=== PATIENT | female | born 1970 | race Caucasian/White ===

== ENCOUNTER 2017-08-22 11:15 | Inpatient (IN) | payer OTHER ==
[2017-08-22] MEDS ORDERED: ONDANSETRON 4 MG/2 ML VIAL IVP STA (11:52)
[2017-08-22] MEDS ORDERED: SODIUM CHLORIDE 0.9% 1,000 ML IV STA (11:52)
--- NOTE | 2017-08-22 11:55 | ED ---
General Adult HPI - General Source: patient, RN notes reviewed Mode of arrival: ambulatory Limitations: no limitations <Sonny Crocker - Last Filed: 08/22/17 13:14> <Danielle Roque - Last Filed: 08/22/17 22:36> - General Chief complaint: Abdominal Pain Stated complaint: Stomach pain Time Seen by Provider: 08/22/17 11:43 - History of Present Illness Initial comments: Patient 46-year-old female presenting to the emergency room today with a chief complaint of abdominal pain that started yesterday morning. She states she's currently at [place] for alcohol withdrawal. She states that about pain started yesterday morning. States his last drink was yesterday morning. Patient does admit to a increased gassy type pain throughout the abdomen. Patient states very sharp at times. She does admit that she is passing gas. States that she has had a bowel movement was recently yesterday. Patient states that her abdomen feels more full. She denies any other complaints or symptoms. Patient denies any recent fever, chills, shortness of breath, chest pain, back pain, vomiting, constipation or diarrhea, headaches or visual changes , or any other complaints. (Sonny Crocker) - Related Data Allergies Allergy/AdvReac Type Severity Reaction Status Date / Time No Known Allergies Allergy Verified 08/22/17 13:36 Review of Systems ROS Other: All systems not noted in ROS Statement are negative. <Sonny Crocker - Last Filed: 08/22/17 13:14> ROS Other: All systems not noted in ROS Statement are negative. <Danielle Roque P - Last Filed: 08/22/17 22:36> ROS Statement: Those systems with pertinent positive or pertinent negative responses have been documented in the HPI. Past Medical History Past Medical History: Diabetes Mellitus History of Any Multi-Drug Resistant Organisms: None Reported Past Surgical History: Section, Cholecystectomy, Tonsillectomy, Tubal Ligation Additional Past Surgical History / Comment(s): gastric bypass, vaginal wall lesion removal Past Psychological History: Anxiety, Depression Smoking Status: Former smoker Past Alcohol Use History: Abuse Past Drug Use History: None Reported <Sonny Crocker - Last Filed: 08/22/17 13:14> General Exam Limitations: no limitations <Sonny Crocker - Last Filed: 08/22/17 13:14> <Danielle Roque - Last Filed: 08/22/17 22:36> - General Exam Comments Initial Comments: General: The patient is awake and alert, in no distress, and does not appear acutely ill. Eye: Pupils are equal, round and reactive to light, extra-ocular movements are intact. No nystagmus. There is normal conjunctiva bilaterally. No signs of icterus. Ears, nose, mouth and throat: There are moist mucous membranes and no oral lesions. Neck: The neck is supple, there is no tenderness or JVD. Cardiovascular: There is a regular rate and rhythm. No murmur, rub or gallop is appreciated. Respiratory: Lungs are clear to auscultation, respirations are non-labored, breath sounds are equal. No wheezes, stridor, rales, or rhonchi. Gastrointestinal: Abdomen soft on palpation. Mild tenderness throughout the abdomen. No rebound, guarding, CVA tenderness. Musculoskeletal: Normal ROM, no tenderness. Strength 5/5. Sensation intact. Pulses equal bilaterally 2+. Neurological: A&O x 3. CN II-XII intact, There are no obvious motor or sensory deficits. Coordination appears grossly intact. Speech is normal. Skin: Skin is warm and dry and no rashes or lesions are noted. Psychiatric: Cooperative, appropriate mood & affect, normal judgment. (Sonny Crocker) Vital Signs 08/22/17 08/22/17 08/22/17 11:37 13:45 13:46 Temperature 97.9 F 98.1 F Pulse Rate 64 74 Respiratory 18 18 Rate Blood Pressure 133/73 137/75 O2 Sat by Pulse 100 99 Oximetry Medical Decision Making - Lab Data Result diagrams: 08/22/17 12:15 08/22/17 12:15 <Sonny Corcker - Last Filed: 08/22/17 13:14> - Lab Data Result diagrams: 08/22/17 12:15 08/22/17 12:15 <Danielle Roque - Last Filed: 08/22/17 22:36> - Medical Decision Making Patient with history of alcohol abuse presenting with abdominal pain. Labs are consistent with acute pancreatitis. Patient is status post cholecystectomy, high suspicion for alcoholic pancreatitis. No evidence of acute alcohol withdrawal. Patient will be admitted to the medicine service for acute pancreatitis. (Danielle Roque) - Lab Data Lab Results 08/22/17 08/22/17 08/22/17 Range/Units 12:15 12:15 12:15 WBC (3.8-10.6) k/uL RBC (3.80-5.40) m/uL Hgb (11.4-16.0) gm/dL Hct (34.0-46.0) % MCV (80.0-100.0) fL MCH (25.0-35.0) pg MCHC (31.0-37.0) g/dL RDW (11.5-15.5) % Plt Count (150-450) k/uL Neutrophils % % Lymphocytes % % Monocytes % % Eosinophils % % Basophils % % Neutrophils # (1.3-7.7) k/uL Lymphocytes # (1.0-4.8) k/uL Monocytes # (0-1.0) k/uL Eosinophils # (0-0.7) k/uL Basophils # (0-0.2) k/uL Sodium 135 L (137-145) mmol/L Potassium 4.3 (3.5-5.1) mmol/L Chloride 95 L (98-107) mmol/L Carbon Dioxide 24 (22-30) mmol/L Anion Gap 16 mmol/L BUN 13 (7-17) mg/dL Creatinine 0.58 (0.52-1.04) mg/dL Est GFR (CKD-EPI)AfAm >90 (>60 ml/min/1.73 sqM) Est GFR (CKD-EPI)NonAf >90 (>60 ml/min/1.73 sqM) Glucose 186 H (74-99) mg/dL Calcium 9.5 (8.4-10.2) mg/dL Total Bilirubin 1.5 H (0.2-1.3) mg/dL AST 200 H (14-36) U/L ALT 147 H (9-52) U/L Alkaline Phosphatase 203 H (38-126) U/L Total Protein 7.5 (6.3-8.2) g/dL Albumin 4.6 (3.5-5.0) g/dL Amylase 373 H* (30-110) U/L Lipase 8410 H (23-300) U/L Urine Color Light Brown Urine Appearance Cloudy H (Clear) Urine pH 6.0 (5.0-8.0) Ur Specific [place] 1.031 (1.001-1.035) Urine Protein 2+ H (Negative) Urine Glucose (UA) Trace H (Negative) Urine Ketones 4+ H (Negative) Urine Blood Moderate H (Negative) Urine Nitrite Negative (Negative) Urine Bilirubin 2+ H (Negative) Urine Urobilinogen 6.0 (<2.0) mg/dL Ur Leukocyte Esterase Trace H (Negative) Urine RBC 3 (0-5) /hpf Urine WBC 6 H (0-5) /hpf Ur Squamous Epith Cells 21 H (0-4) /hpf Amorphous Sediment Rare H (None) /hpf Hyaline Casts 5 H (0-2) /lpf Urine Mucus Many H (None) /hpf Urine HCG, Qual Not Detected (Not Detectd) 08/22/17 Range/Units 12:15 WBC 11.3 H (3.8-10.6) k/uL RBC 4.83 (3.80-5.40) m/uL Hgb 14.5 (11.4-16.0) gm/dL Hct 46.2 H (34.0-46.0) % MCV 95.7 (80.0-100.0) fL MCH 30.0 (25.0-35.0) pg MCHC 31.4 (31.0-37.0) g/dL RDW 14.7 (11.5-15.5) % Plt Count 190 (150-450) k/uL Neutrophils % 83 % Lymphocytes % 11 % Monocytes % 5 % Eosinophils % 1 % Basophils % 0 % Neutrophils # 9.4 H (1.3-7.7) k/uL Lymphocytes # 1.2 (1.0-4.8) k/uL Monocytes # 0.5 (0-1.0) k/uL Eosinophils # 0.1 (0-0.7) k/uL Basophils # 0.0 (0-0.2) k/uL Sodium (137-145) mmol/L Potassium (3.5-5.1) mmol/L Chloride (98-107) mmol/L Carbon Dioxide (22-30) mmol/L Anion Gap mmol/L BUN (7-17) mg/dL Creatinine (0.52-1.04) mg/dL Est GFR (CKD-EPI)AfAm (>60 ml/min/1.73 sqM) Est GFR (CKD-EPI)NonAf (>60 ml/min/1.73 sqM) Glucose (74-99) mg/dL Calcium (8.4-10.2) mg/dL Total Bilirubin (0.2-1.3) mg/dL AST (14-36) U/L ALT (9-52) U/L Alkaline Phosphatase (38-126) U/L Total Protein (6.3-8.2) g/dL Albumin (3.5-5.0) g/dL Amylase (30-110) U/L Lipase (23-300) U/L Urine Color Urine Appearance (Clear) Urine pH (5.0-8.0) Ur Specific [place] (1.001-1.035) Urine Protein (Negative) Urine Glucose (UA) (Negative) Urine Ketones (Negative) Urine Blood (Negative) Urine Nitrite (Negative) Urine Bilirubin (Negative) Urine Urobilinogen (<2.0) mg/dL Ur Leukocyte Esterase (Negative) Urine RBC (0-5) /hpf Urine WBC (0-5) /hpf Ur Squamous Epith Cells (0-4) /hpf Amorphous Sediment (None) /hpf Hyaline Casts (0-2) /lpf Urine Mucus (None) /hpf Urine HCG, Qual (Not Detectd) Disposition Is patient prescribed a controlled substance at d/c from ED?: No Time of Disposition: 13:14 <Sonny Crocker - Last Filed: 08/22/17 13:14> <Danielle Roque - Last Filed: 08/22/17 22:36> Clinical Impression: Acute pancreatitis Disposition: ADMITTED IP TO THIS HOSP Condition: Good
[2017-08-22 12:34] LABS: Basophils % (A) 0 %; Eosinophils # (A) 0.1 k/uL (0-0.7); Eosinophils % (A) 1 %; HCT 46.2 % (34.0-46.0); HGB 14.5 gm/dL (11.4-16.0); Lymphocytes # (A) 1.2 k/uL (1.0-4.8); Lymphocytes % (A) 11 %; MCHC 31.4 g/dL (31.0-37.0); MCV 95.7 fL (80.0-100.0); Mean Platelet Volume 7.7; Monocytes # (A) 0.5 k/uL (0-1.0); Monocytes % (A) 5 %; Neutrophils # (A) 9.4 k/uL (1.3-7.7); Neutrophils % (A) 83 %; Platelet Count 190 k/uL (150-450); RBC 4.83 m/uL (3.80-5.40); RDW 14.7 % (11.5-15.5); WBC 11.3 k/uL (3.8-10.6)
[2017-08-22 12:37] LABS: Amorphous Sediment,Urine Rare /hpf; Appearance,Urine Cloudy (Clear); Bilirubin,Urine 2+ (Negative); Blood,Urine Moderate (Negative); Color,Urine Light Brown; Glucose,Urine (UA) Trace (Negative); Hyaline Casts,Urine 5 /lpf (0-2); Ketones,Urine 4+ (Negative); Leukocyte Esterase,Urine Trace (Negative); Mucus,Urine Many /hpf; Nitrite,Urine Negative (Negative); Protein,Urine 2+ (Negative); RBC,Urine 3 /hpf (0-5); Specific Gravity,Urine 1.031 (1.001-1.035); Squamous Epithelial Cell,Urine 21 /hpf (0-4); WBC,Urine 6 /hpf (0-5)
[2017-08-22 12:44] LABS: ALT 147 U/L (9-52); AST 200 U/L (14-36); Albumin 4.6 g/dL (3.5-5.0); Alkaline Phosphatase 203 U/L (38-126); Anion Gap 16 mmol/L; Blood Urea Nitrogen 13 mg/dL (7-17); Calcium 9.5 mg/dL (8.4-10.2); Carbon Dioxide 24 mmol/L (22-30); Chloride 95 mmol/L (98-107); Glucose 186 mg/dL (74-99); Potassium 4.3 mmol/L (3.5-5.1); Sodium 135 mmol/L (137-145); Total Bilirubin 1.5 mg/dL (0.2-1.3); Total Protein 7.5 g/dL (6.3-8.2)
--- NOTE | 2017-08-22 12:52 | XR ---
EXAMINATION TYPE: XR KUB , 2 VIEWS DATE OF EXAM ORDERED: 08/22/2017 HISTORY: abdominal pain. COMPARISON: None. FINDINGS: The lung bases are clear. Within the abdomen, is been previous cholecystectomy. There is been previous left upper quadrant surg pati. There is no evidence of bowel obstruction. There are scattered air-fluid levels. There are phleb oliths within the pelvis. IMPRESSION: FINDINGS MOST CONSISTENT WITH MILD ILEUS.
[2017-08-22 12:53] LABS: Amylase 373 U/L (30-110)
[2017-08-22 13:04] LABS: Lipase 8410 U/L (23-300)
[2017-08-22] MEDS ORDERED: NALOXONE 0.4 MG/ML 1 ML VIAL IV PRN ×2 (13:12→13:35)
[2017-08-22] MEDS ORDERED: KETOROLAC 30 MG/ML 1 ML VIAL IVP STA (13:34)
[2017-08-22] MEDS ORDERED: MORPHINE SULFATE 4 MG/ML SYRINGE IVP STA (13:34)
[2017-08-22] MEDS ORDERED: MORPHINE SULFATE 4 MG/ML SYRINGE IV PRN (13:35)
[2017-08-22] MEDS: SODIUM CHLORIDE 0.9% 1,000 ML IV SCH ×2 (13:44→18:21)
[2017-08-22 15:04] VITALS: BMI 28.8
[2017-08-22] MEDS: NYSTATIN 100,000UNIT/GM CREAM 30 GM TUBE TOPICAL SCH ×2 (15:27→20:12)
--- NOTE | 2017-08-22 15:28 | P.HPIM ---
History of Present Illness H&P Date: 08/22/17 Chief Complaint: Abdominal pain 46-year-old female presented to the emergency room today with a chief complaint of abdominal pain that started yesterday morning. She stated she's currently at [place] for alcohol withdrawal. Stated her last drink was yesterday morning. Pain is constant, feels like a fullness sensation and bloating ache and is all over the abdomen. She has been having nausea, vomiting. States that she had a loose bowel movement was recently yesterday. With that she reported blood blood mixed with the stool. She also noticed some blood when she wiped. No fevers or chills. No chest pain or shortness of breath. Patient has been drinking over the last month on a daily basis about 1/5 of vodka every day. She has been drinking heavily over the last 9 months. Before that she never had a problem with alcohol. She has been going through divorce and recently lost her job. In the emergency department she was found to have very elevated amylase and lipase, subsequently was admitted to the hospital for further evaluation and management. Review of Systems 12 point review of system performed, negative except for HPI. Past Medical History Additional Past Medical History / Comment(s): Supraventricular tachycardia, ADHD History of Any Multi-Drug Resistant Organisms: None Reported Past Surgical History: Section, Cholecystectomy, Tonsillectomy, Tubal Ligation Additional Past Surgical History / Comment(s): gastric bypass, vaginal wall lesion removal Past Psychological History: Anxiety, Depression Smoking Status: Former smoker Past Alcohol Use History: Abuse Past Drug Use History: None Reported Medications and Allergies Home Medications Medication Instructions Recorded Confirmed Type Fluticasone Nasal [place] [Flonase 1 spray EA NOSTRIL DAILY PRN 08/22/17 08/22/17 History Nasal [place]] Metoprolol Tartrate [Lopressor] 50 mg PO BID 08/22/17 08/22/17 History Allergies Allergy/AdvReac Type Severity Reaction Status Date / Time No Known Allergies Allergy Verified 08/22/17 13:36 Physical Exam Vitals: Vital Signs Temp Pulse Pulse Resp BP BP Pulse Ox 08/22/17 14:08 98.8 F 71 16 120/85 100 08/22/17 13:46 98.1 F 08/22/17 13:45 74 18 137/75 99 08/22/17 11:37 97.9 F 64 18 133/73 100 Intake and Output 08/22/17 08/22/17 08/22/17 06:59 14:59 22:59 Other: Weight 80.921 kg Constitutional: No acute distress, conversant, pleasant Eyes:Anicteric sclerae, moist conjunctiva, no lid-lag, PERRLA, ENMT: Oropharynx clear, no erythema, exudates Neck: Supple, FROM, no masses, or JVD, No carotid bruits, No thyromegaly Lungs: Clear to auscultation, Clear to percussion, Normal respiratory effort, no accessory muscle use Cardiovascular: Heart regular in rate and rhythm, No murmurs, gallops, or rubs, No peripheral edema Abdominal: Slightly distended, diffusely tender, no guarding, rebound or rigidity, Normoactive bowel sounds, No hepatomegaly, No splenomegaly, No palpable mass Skin: Normal temperature, tone, texture, turgor, no induration, No subcutaneous nodules, No rash, lesions, No ulcers Extremities: No digital cyanosis, No clubbing, Pedal pulses intact and symmetrical, Radial pulses intact and symmetrical, No calf tenderness Psychiatric: Alert and oriented to person, place and time, appropriate affect, intact judgement Neuro: Muscles Strength 5/5 in all 4 extremities, Sensation to light touch grossly present throughout, Cranial nerves II-XII grossly intact, no focal sensory deficits Results CBC & Chem 7: 08/22/17 12:15 08/22/17 12:15 Labs: Abnormal Lab Results - Last 24 Hours (Table) 08/22/17 08/22/17 08/22/17 Range/Units 12:15 12:15 12:15 WBC 11.3 H (3.8-10.6) k/uL Hct 46.2 H (34.0-46.0) % Neutrophils # 9.4 H (1.3-7.7) k/uL Sodium 135 L (137-145) mmol/L Chloride 95 L (98-107) mmol/L Glucose 186 H (74-99) mg/dL Total Bilirubin 1.5 H (0.2-1.3) mg/dL AST 200 H (14-36) U/L ALT 147 H (9-52) U/L Alkaline Phosphatase 203 H (38-126) U/L Amylase 373 H* (30-110) U/L Lipase 8410 H (23-300) U/L Urine Appearance Cloudy H (Clear) Urine Protein 2+ H (Negative) Urine Glucose (UA) Trace H (Negative) Urine Ketones 4+ H (Negative) Urine Blood Moderate H (Negative) Urine Bilirubin 2+ H (Negative) Ur Leukocyte Esterase Trace H (Negative) Urine WBC 6 H (0-5) /hpf Ur Squamous Epith Cells 21 H (0-4) /hpf Amorphous Sediment Rare H (None) /hpf Hyaline Casts 5 H (0-2) /lpf Urine Mucus Many H (None) /hpf Thrombosis Risk Factor Assmnt - Choose All That Apply Each Factor Represents 1 point: Age 41-60 years Thrombosis Risk Factor Assessment Total Risk Factor Score: 1 Thrombosis Risk Factor Assessment Level: Low Risk Assessment and Plan Plan: Acute pancreatitis, likely alcoholic IV fluids Nothing by mouth except ice chips Follow amylase and lipase in the morning Alcohol abuse CIWA protocol with Ativan IV Folic acid, multivitamins and thiamine once able to take by mouth. History of supraventricular tachycardia Holding all oral medications including metoprolol Monitor heart rate, administer IV metoprolol as needed Transaminitis and hyperbilirubinemia Likely secondary to alcohol abuse Counseled to quit Anxiety/depression/ADHD Consult psychiatry
[2017-08-22] MEDS ORDERED: LORazepam 2 MG/ML INJ IV PRN ×3 (15:29)
[2017-08-22] MEDS: KETOROLAC 30 MG/ML 1 ML VIAL IVP PRN (18:15)
[2017-08-22] MEDS: ONDANSETRON 4 MG/2 ML VIAL IVP PRN (18:16)
[2017-08-23] MEDS: KETOROLAC 30 MG/ML 1 ML VIAL IVP PRN ×4 (00:05→18:29)
[2017-08-23] MEDS: SODIUM CHLORIDE 0.9% 1,000 ML IV SCH ×4 (00:05→22:43)
[2017-08-23 07:20] LABS: Basophils % (A) 0 %; Eosinophils # (A) 0.2 k/uL (0-0.7); Eosinophils % (A) 2 %; HCT 38.6 % (34.0-46.0); HGB 11.9 gm/dL (11.4-16.0); Hypochromasia Slight; Lymphocytes # (A) 1.6 k/uL (1.0-4.8); Lymphocytes % (A) 16 %; MCH 29.8 pg (25.0-35.0); MCHC 30.8 g/dL (31.0-37.0); MCV 96.8 fL (80.0-100.0); Mean Platelet Volume 7.7; Monocytes # (A) 0.5 k/uL (0-1.0); Monocytes % (A) 5 %; Neutrophils # (A) 7.5 k/uL (1.3-7.7); Neutrophils % (A) 75 %; Platelet Count 140 k/uL (150-450); RBC 3.98 m/uL (3.80-5.40); RDW 14.9 % (11.5-15.5); WBC 9.9 k/uL (3.8-10.6)
[2017-08-23 07:49] LABS: ALT 108 U/L (9-52); AST 138 U/L (14-36); Albumin 3.2 g/dL (3.5-5.0); Alkaline Phosphatase 135 U/L (38-126); Amylase 239 U/L (30-110); Anion Gap 6 mmol/L; Blood Urea Nitrogen 8 mg/dL (7-17); Calcium 8.1 mg/dL (8.4-10.2); Carbon Dioxide 29 mmol/L (22-30); Chloride 104 mmol/L (98-107); Glucose 84 mg/dL (74-99); Magnesium 1.7 mg/dL (1.6-2.3); Phosphorus 2.5 mg/dL (2.5-4.5); Potassium 3.5 mmol/L (3.5-5.1); Sodium 139 mmol/L (137-145); Total Bilirubin 1.2 mg/dL (0.2-1.3); Total Protein 5.8 g/dL (6.3-8.2)
[2017-08-23 08:48] LABS: Lipase 4405 U/L (23-300)
--- NOTE | 2017-08-23 11:39 | P.PN ---
Subjective Progress Note Date: 08/23/17 Principal diagnosis: Acute pancreatitis Feeling better today, the cramping and fullness in the stomach is better. Objective - Vital Signs Vital signs: Vital Signs Temp 99.2 F 08/23/17 00:43 Pulse 84 08/23/17 00:43 Resp 16 08/22/17 23:52 BP 144/90 08/22/17 23:52 Pulse Ox 99 08/22/17 23:52 Intake & Output 08/22/17 08/23/17 08/23/17 18:59 06:59 18:59 Intake Total 1800 Balance 1800 Weight 80.921 kg Intake: Intake, IV Titration 1800 Amount Sodium Chloride 0.9% 1, 1800 000 ml @ 150 mls/hr IV . Q6H40M [facility] Rx#:[id number] Other: # Voids 3 - Exam Constitutional: No acute distress, conversant, pleasant Eyes:Anicteric sclerae, moist conjunctiva, no lid-lag, PERRLA, ENMT: Oropharynx clear, no erythema, exudates Neck: Supple, FROM, no masses, or JVD, No carotid bruits, No thyromegaly Lungs: Clear to auscultation, Clear to percussion, Normal respiratory effort, no accessory muscle use Cardiovascular: Heart regular in rate and rhythm, No murmurs, gallops, or rubs, No peripheral edema Abdominal: Slightly distended, diffusely tender, no guarding, rebound or rigidity, Normoactive bowel sounds, No hepatomegaly, No splenomegaly, No palpable mass Skin: Normal temperature, tone, texture, turgor, no induration, No subcutaneous nodules, No rash, lesions, No ulcers Extremities: No digital cyanosis, No clubbing, Pedal pulses intact and symmetrical, Radial pulses intact and symmetrical, No calf tenderness Psychiatric: Alert and oriented to person, place and time, appropriate affect, intact judgement Neuro: Muscles Strength 5/5 in all 4 extremities, Sensation to light touch grossly present throughout, Cranial nerves II-XII grossly intact, no focal sensory deficits - Labs CBC & Chem 7: 08/23/17 06:48 08/23/17 06:48 Labs: Abnormal Lab Results - Last 24 Hours (Table) 08/22/17 08/22/17 08/22/17 Range/Units 12:15 12:15 12:15 WBC 11.3 H (3.8-10.6) k/uL Hct 46.2 H (34.0-46.0) % MCHC (31.0-37.0) g/dL Plt Count (150-450) k/uL Neutrophils # 9.4 H (1.3-7.7) k/uL Sodium 135 L (137-145) mmol/L Chloride 95 L (98-107) mmol/L Glucose 186 H (74-99) mg/dL Calcium (8.4-10.2) mg/dL Total Bilirubin 1.5 H (0.2-1.3) mg/dL AST 200 H (14-36) U/L ALT 147 H (9-52) U/L Alkaline Phosphatase 203 H (38-126) U/L Total Protein (6.3-8.2) g/dL Albumin (3.5-5.0) g/dL Amylase 373 H* (30-110) U/L Lipase 8410 H (23-300) U/L Urine Appearance Cloudy H (Clear) Urine Protein 2+ H (Negative) Urine Glucose (UA) Trace H (Negative) Urine Ketones 4+ H (Negative) Urine Blood Moderate H (Negative) Urine Bilirubin 2+ H (Negative) Ur Leukocyte Esterase Trace H (Negative) Urine WBC 6 H (0-5) /hpf Ur Squamous Epith Cells 21 H (0-4) /hpf Amorphous Sediment Rare H (None) /hpf Hyaline Casts 5 H (0-2) /lpf Urine Mucus Many H (None) /hpf 08/23/17 08/23/17 Range/Units 06:48 06:48 WBC (3.8-10.6) k/uL Hct (34.0-46.0) % MCHC 30.8 L (31.0-37.0) g/dL Plt Count 140 L (150-450) k/uL Neutrophils # (1.3-7.7) k/uL Sodium (137-145) mmol/L Chloride (98-107) mmol/L Glucose (74-99) mg/dL Calcium 8.1 L (8.4-10.2) mg/dL Total Bilirubin (0.2-1.3) mg/dL AST 138 H (14-36) U/L ALT 108 H (9-52) U/L Alkaline Phosphatase 135 H (38-126) U/L Total Protein 5.8 L (6.3-8.2) g/dL Albumin 3.2 L (3.5-5.0) g/dL Amylase 239 H (30-110) U/L Lipase 4405 H (23-300) U/L Urine Appearance (Clear) Urine Protein (Negative) Urine Glucose (UA) (Negative) Urine Ketones (Negative) Urine Blood (Negative) Urine Bilirubin (Negative) Ur Leukocyte Esterase (Negative) Urine WBC (0-5) /hpf Ur Squamous Epith Cells (0-4) /hpf Amorphous Sediment (None) /hpf Hyaline Casts (0-2) /lpf Urine Mucus (None) /hpf Assessment and Plan Plan: Acute pancreatitis, likely alcoholic IV fluids Nothing by mouth except ice chips Amylase and lipase levels better Pain control Alcohol abuse CIWA protocol with Ativan IV Folic acid, multivitamins and thiamine once able to take by mouth. History of supraventricular tachycardia Holding all oral medications including metoprolol Monitor heart rate, administer IV metoprolol as needed Transaminitis and hyperbilirubinemia Likely secondary to alcohol abuse Counseled to quit Anxiety/depression/ADHD Consult psychiatry
[2017-08-23] MEDS: NYSTATIN 100,000UNIT/GM CREAM 30 GM TUBE TOPICAL SCH ×3 (12:32→22:42)
[2017-08-24] MEDS: KETOROLAC 30 MG/ML 1 ML VIAL IVP PRN ×4 (00:13→18:23)
[2017-08-24] MEDS: SODIUM CHLORIDE 0.9% 1,000 ML IV SCH ×4 (03:45→22:43)
[2017-08-24] MEDS: NYSTATIN 100,000UNIT/GM CREAM 30 GM TUBE TOPICAL SCH ×3 (09:27→22:42)
[2017-08-24 11:10] LABS: Amylase 80 U/L (30-110); Anion Gap 7 mmol/L; Blood Urea Nitrogen 4 mg/dL (7-17); Calcium 7.7 mg/dL (8.4-10.2); Carbon Dioxide 24 mmol/L (22-30); Chloride 107 mmol/L (98-107); Glucose 69 mg/dL (74-99); Lipase 1201 U/L (23-300); Magnesium 1.8 mg/dL (1.6-2.3); Potassium 3.7 mmol/L (3.5-5.1); Sodium 138 mmol/L (137-145)
[2017-08-24 11:24] LABS: HGB 10.7 gm/dL (11.4-16.0); Hypochromasia Slight; MCH 30.8 pg (25.0-35.0); MCHC 31.3 g/dL (31.0-37.0); MCV 98.4 fL (80.0-100.0); Mean Platelet Volume 7.4; Platelet Count 100 k/uL (150-450); RBC 3.46 m/uL (3.80-5.40); WBC 8.5 k/uL (3.8-10.6)
--- NOTE | 2017-08-24 14:32 | P.PN ---
Subjective Progress Note Date: 08/24/17 Principal diagnosis: Acute pancreatitis Feeling better. Objective - Vital Signs Vital signs: Vital Signs Temp 98.6 F 08/24/17 07:34 Pulse 96 08/24/17 07:34 Resp 16 08/24/17 07:34 BP 135/84 08/24/17 07:34 Pulse Ox 97 08/24/17 07:34 Intake & Output 08/23/17 08/24/17 08/24/17 18:59 06:59 18:59 Intake Total 1200 1050 Balance 1200 1050 Intake: Intake, IV Titration 1200 1050 Amount Sodium Chloride 0.9% 1, 1200 1050 000 ml @ 150 mls/hr IV . Q6H40M [facility] Rx#:[id number] Other: Voiding Method Toilet # Voids 1 - Exam Constitutional: No acute distress, conversant, pleasant Eyes:Anicteric sclerae, moist conjunctiva, no lid-lag, PERRLA, ENMT: Oropharynx clear, no erythema, exudates Neck: Supple, FROM, no masses, or JVD, No carotid bruits, No thyromegaly Lungs: Clear to auscultation, Clear to percussion, Normal respiratory effort, no accessory muscle use Cardiovascular: Heart regular in rate and rhythm, No murmurs, gallops, or rubs, No peripheral edema Abdominal: Slightly distended, diffusely tender, no guarding, rebound or rigidity, Normoactive bowel sounds, No hepatomegaly, No splenomegaly, No palpable mass Skin: Normal temperature, tone, texture, turgor, no induration, No subcutaneous nodules, No rash, lesions, No ulcers Extremities: No digital cyanosis, No clubbing, Pedal pulses intact and symmetrical, Radial pulses intact and symmetrical, No calf tenderness Psychiatric: Alert and oriented to person, place and time, appropriate affect, intact judgement Neuro: Muscles Strength 5/5 in all 4 extremities, Sensation to light touch grossly present throughout, Cranial nerves II-XII grossly intact, no focal sensory deficits - Labs CBC & Chem 7: 08/24/17 10:46 08/24/17 10:46 Labs: Abnormal Lab Results - Last 24 Hours (Table) 08/24/17 08/24/17 Range/Units 10:46 10:46 RBC 3.46 L (3.80-5.40) m/uL Hgb 10.7 L (11.4-16.0) gm/dL Plt Count 100 L (150-450) k/uL BUN 4 L (7-17) mg/dL Creatinine 0.41 L (0.52-1.04) mg/dL Glucose 69 L (74-99) mg/dL Calcium 7.7 L (8.4-10.2) mg/dL Phosphorus 2.0 L (2.5-4.5) mg/dL Lipase 1201 H (23-300) U/L Assessment and Plan Plan: Acute pancreatitis, likely alcoholic IV fluids Start on clears. Amylase and lipase levels better Pain control Alcohol abuse CIWA protocol with Ativan IV Folic acid, multivitamins and thiamine once able to take by mouth. History of supraventricular tachycardia Stable Monitor heart rate Transaminitis and hyperbilirubinemia Likely secondary to alcohol abuse Counseled to quit Anxiety/depression/ADHD Consult psychiatry
--- NOTE | 2017-08-24 14:40 | P.CN ---
Psychiatric Consult - . Consult date: 08/24/17 Consult:: 08/24/17 14:26 Identification: Patient is a 46-year-old female who was transferred from [facility] for abdominal pain. Reason for Consult: Consultation was requested for depression, anxiety, ADHD and alcohol use History of Present Illness: Patient's chart was reviewed the patient was seen and interviewed in her room no family members were present. Patient states that she had been at [facility] for 1 day when she began developing severe stomach pain. She stated that she started using alcohol in November 2016 and was initially binging on a fifth a day for several weeks at a time and then would stop for a while but was drinking on a daily basis prior to her admission to [facility] and had been drinking the day prior. Patient states that she had never used alcohol prior to this on any continuous basis. She states that multiple life changes precipitated her use of alcohol such as getting in October 2016. She states that he filed when she moved out several years earlier and had become engaged to someone which did not work out when that gentleman also left. She states that the marriage has not been going well for some time and felt that he was controlling and didn't want her working outside of the house, socializing especially after she had gastric bypass surgery and lost weight. She states that she had a good job when she was engaged and living with the other gentleman and when she returned to live closer to her children she lost that job. Patient states that she has have 50-50 custody of 3 minor children. She states that she is the be paying child support as her is on Social Security disability. Patient has no source of financial support at this time stating that her mother assists her financially. Patient states that she's had panic attacks in the past since the age of 16 and had been using Xanax on and off over the years and last used in March 2017. She states that her primary care physician was prescribing 0.25 mg which she was using once a day mostly in the evening. Patient describes feeling anxious, increased heart rate, hyperventilation and feeling as though something terrible was going to happen. Patient states that she also has had periods of depression over the years which she describes as staying in bed for several days but she was able to care for the kids without any suicidal ideation. She states that she was more withdrawn during these periods of time. She states that she been depressed over the years due to her life the lack of money and the fact that they have many children. She states that she saw a counselor in the past for 2 months. She states that she slept more during these periods of times and denies any prior suicide attempts. Patient states the primary care physicians have tried her on multiple antidepressant medication such as Paxil, Celexa and Effexor and she states that she felt worse after he had been on them for several weeks and so we discontinued them. Patient does not endorse a history of manic symptoms, psychotic symptoms and no OCD symptoms. Patient's periods of depression have last for several weeks at a time and have remitted on their own. Her panic attacks have been something that is been going on since the age of 16 and she was using Xanax once a day to treat this and has never been treated by a psychiatrist. Patient is unclear about why she began using alcohol back in November but states that she was feeling depressed and anxious at that time. Past Psychiatric History: Patient has been treated by primary care physicians with Xanax for a number of years to target her panic attacks and has been tried on Paxil, Celexa and Effexor for her depression with poor response. Patient saw a counselor for 2 months in the past but has never been admitted to inpatient psychiatry and has no history of suicide attempts. Past Medical/Surgical History: Patient has a diagnosis of supraventricular tachycardia, she is status post cholecystectomy and a tubal ligation with reversal status post gastric bypass and states that she did have type 2 diabetes in the past that resolved when she had the gastric bypass and lost weight. Patient states that she's currently been diagnosed with pancreatitis Family History: Patient states that no one in the family has a history of any psychiatric treatment and her father was an alcohol user. She states there've been no completed suicides in the family Social History: Patient was born and raised in [place] and her parents are both alive and they at the age of 10. She lived with her mother and 1 brother. She states that her father remarried and she has a half-sister which she has little contact with. Patient completed high school and was at the age of 20. She states that she and her have been together since the age of 16 and they had 3 children and then she had her tubes tied. She states that they then got into fostering children and eventually adopted for children. She states that she also had her tubal ligation reversed and then subsequently had 2 more children. Her children are ages 826, 6 of the children are over the age of 18. 3 of the children continue to live with either the patient or their father. 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 Patient states she supported by her mother and her ex he is on Social Security disability she is to be paying child support but is not doing so Substance Use History: patient states that she used alcohol socially in the past but beginning in November 2016 JVD using alcohol in binges for several weeks and was drinking a fifth a day until her admission to [facility] several days ago. Patient denies any other drug use history and no IV drug use. Patient does not currently use tobacco products. Legal History: Patient was charged with a DUI in the past and was also charged with domestic violence but states the charges were dropped Mental status: Appearance/Attitude: Patient is lying in a hospital bed in no acute distress makes good eye contact and was cooperative. Behavior: Patient does not exhibit any psychomotor agitation or retardation. Speech/Language: Patient's speech is spontaneous of normal volume and rhythm and she is coherent. Thought Process: Patient is goal-directed there is no evidence of loose association or flight of ideas. Thought Content: Patient denies any auditory or visual hallucinations and no delusions or paranoid ideation were elicited. Patient states that she had been feeling depressed and stressed due to her divorce being finalized, being from her fianc after he left, loss of her job and states that she began using alcohol. Patient states that she was not eating well and was not sleeping well. Suicidal/Homicidal Ideation: Patient denies any current suicidal or homicidal ideation Sensorium/Cognition: Patient is alert and oriented to person, place, time and her recent and remote memory are grossly intact Mood/Affect: Patient's mood is euthymic and her affect is appropriate Insight/Judgment: Insight and judgment are intact Assessment: Patient states that she was asked if she was to speak with someone and stated that she did. Patient states she's had a history of panic attacks since the age of 16 and has been treated with Xanax over the years. Patient states she is also had bouts of depression or primary care physicians have tried various antidepressant medication which she states after several weeks made her symptoms worse. Patient states that after her divorce in October 2016 she began using alcohol and was using up to a fifth a day. She states that she had left her for another man and he had filed for divorce. She states she was engaged to this other man and that he also recently abruptly left and the patient moved back stayer to her . Patient states that they share custody of their children, 3 of whom are minors. Patient has no source of financial support and states that she has been supported by her ex as well as her mother. Patient reports that she contacted and arranged for [facility] treatment and after being there for 1 day began to develop stomach pain was transferred to the hospital. Patient has no history of suicide attempts, she is not endorsing any symptoms of psychosis, herminio or OCD. Patient has never been in counseling other than for 2 brief 2 months. With a counselor and has never been seen by psychiatrist nor had any inpatient psychiatric treatment. Diagnosis: Alcohol use disorder, severe; history of panic attacks; history of a depressive disorder Plan: patient is not currently expressing any acute depressive symptoms nor is she reporting any panic attack symptoms. Patient is currently being treated for pancreatitis and had just recently gone for inpatient rehab treatment for her alcohol use disorder. At this time I would not recommend beginning any psychotropic medication and would recommend that the patient return to [facility] once she is medically stable. I discussed with the patient that after she is sober and has been released from [facility] should she continue to feel that she needs counseling regarding depressive or anxiety symptoms that she seek outpatient counseling. Patient was encouraged to not restart any of the benzodiazepines. Patient does not require inpatient psychiatric admission at this time. There are any further questions or concerns please don't states contact me I will sign off the case
[2017-08-25] MEDS ORDERED: KETOROLAC 30 MG/ML 1 ML VIAL ONE (00:20)
[2017-08-25] MEDS: SODIUM CHLORIDE 0.9% 1,000 ML IV SCH ×3 (04:19→20:41)
[2017-08-25] MEDS: KETOROLAC 30 MG/ML 1 ML VIAL IVP PRN ×3 (06:16→18:52)
[2017-08-25 07:15] LABS: HCT 31.9 % (34.0-46.0); Hypochromasia Slight; MCH 30.6 pg (25.0-35.0); MCHC 31.3 g/dL (31.0-37.0); MCV 97.5 fL (80.0-100.0); Mean Platelet Volume 8.7; Platelet Count 109 k/uL (150-450); RBC 3.27 m/uL (3.80-5.40); RDW 14.9 % (11.5-15.5); WBC 7.2 k/uL (3.8-10.6)
[2017-08-25 07:30] LABS: ALT 79 U/L (9-52); AST 85 U/L (14-36); Albumin 2.7 g/dL (3.5-5.0); Alkaline Phosphatase 113 U/L (38-126); Amylase 62 U/L (30-110); Anion Gap 5 mmol/L; Blood Urea Nitrogen 3 mg/dL (7-17); Carbon Dioxide 26 mmol/L (22-30); Chloride 108 mmol/L (98-107); Glucose 108 mg/dL (74-99); Lipase 843 U/L (23-300); Magnesium 1.8 mg/dL (1.6-2.3); Phosphorus 1.9 mg/dL (2.5-4.5); Potassium 3.7 mmol/L (3.5-5.1); Sodium 139 mmol/L (137-145); Total Bilirubin 0.8 mg/dL (0.2-1.3); Total Protein 5.1 g/dL (6.3-8.2)
[2017-08-25] MEDS: NYSTATIN 100,000UNIT/GM CREAM 30 GM TUBE TOPICAL SCH ×3 (09:13→20:41)
--- NOTE | 2017-08-25 11:42 | P.PN ---
Subjective Progress Note Date: 08/25/17 Principal diagnosis: Acute pancreatitis Patient has some abdominal pain and cramps last night but today she is feeling better. No nausea or vomiting. Objective - Vital Signs Vital signs: Vital Signs Temp 99.2 F 08/25/17 09:09 Pulse 89 08/25/17 09:09 Resp 16 08/25/17 09:09 BP 136/82 08/25/17 09:09 Pulse Ox 97 08/25/17 09:09 Intake & Output 08/24/17 08/25/17 08/25/17 18:59 06:59 18:59 Intake Total 360 1200 Balance 360 1200 Intake: Intake, IV Titration 1200 Amount Sodium Chloride 0.9% 1, 1200 000 ml @ 150 mls/hr IV . Q6H40M [facility] Rx#:[id number] Oral 360 Other: Voiding Method Toilet # Voids 1 1 - Exam Constitutional: No acute distress, conversant, pleasant Eyes:Anicteric sclerae, moist conjunctiva, no lid-lag, PERRLA, ENMT: Oropharynx clear, no erythema, exudates Neck: Supple, FROM, no masses, or JVD, No carotid bruits, No thyromegaly Lungs: Clear to auscultation, Clear to percussion, Normal respiratory effort, no accessory muscle use Cardiovascular: Heart regular in rate and rhythm, No murmurs, gallops, or rubs, No peripheral edema Abdominal: Slightly distended, diffusely tender, no guarding, rebound or rigidity, Normoactive bowel sounds, No hepatomegaly, No splenomegaly, No palpable mass Skin: Normal temperature, tone, texture, turgor, no induration, No subcutaneous nodules, No rash, lesions, No ulcers Extremities: No digital cyanosis, No clubbing, Pedal pulses intact and symmetrical, Radial pulses intact and symmetrical, No calf tenderness Psychiatric: Alert and oriented to person, place and time, appropriate affect, intact judgement Neuro: Muscles Strength 5/5 in all 4 extremities, Sensation to light touch grossly present throughout, Cranial nerves II-XII grossly intact, no focal sensory deficits - Labs CBC & Chem 7: 08/25/17 07:01 08/25/17 07:01 Labs: Abnormal Lab Results - Last 24 Hours (Table) 08/25/17 08/25/17 Range/Units 07:01 07:01 RBC 3.27 L (3.80-5.40) m/uL Hgb 10.0 L (11.4-16.0) gm/dL Hct 31.9 L (34.0-46.0) % Plt Count 109 L (150-450) k/uL Chloride 108 H (98-107) mmol/L BUN 3 L (7-17) mg/dL Creatinine 0.40 L (0.52-1.04) mg/dL Glucose 108 H (74-99) mg/dL Calcium 8.0 L (8.4-10.2) mg/dL Phosphorus 1.9 L (2.5-4.5) mg/dL AST 85 H (14-36) U/L ALT 79 H (9-52) U/L Total Protein 5.1 L (6.3-8.2) g/dL Albumin 2.7 L (3.5-5.0) g/dL Lipase 843 H (23-300) U/L Assessment and Plan Plan: Acute pancreatitis, likely alcoholic IV fluids Advance diet to full liquid Amylase and lipase levels better Pain control Alcohol abuse CIWA protocol with Ativan IV Folic acid, multivitamins and thiamine once able to take by mouth. History of supraventricular tachycardia Stable Monitor heart rate Thrombocytopenia, Transaminitis and hyperbilirubinemia Likely secondary to alcohol abuse Counseled to quit Anxiety/depression/ADHD Consult psychiatry
[2017-08-26] MEDS: KETOROLAC 30 MG/ML 1 ML VIAL IVP PRN ×3 (01:18→16:27)
[2017-08-26] MEDS: SODIUM CHLORIDE 0.9% 1,000 ML IV SCH ×4 (02:42→21:01)
[2017-08-26 07:14] LABS: HCT 31.1 % (34.0-46.0); HGB 9.8 gm/dL (11.4-16.0); Hypochromasia Slight; MCH 30.6 pg (25.0-35.0); MCHC 31.5 g/dL (31.0-37.0); MCV 97.2 fL (80.0-100.0); Platelet Count 122 k/uL (150-450); RDW 14.6 % (11.5-15.5); WBC 6.6 k/uL (3.8-10.6)
[2017-08-26] MEDS: NYSTATIN 100,000UNIT/GM CREAM 30 GM TUBE TOPICAL SCH ×3 (07:43→20:00)
[2017-08-26 09:04] LABS: ALT 81 U/L (9-52); AST 88 U/L (14-36); Albumin 3.1 g/dL (3.5-5.0); Alkaline Phosphatase 135 U/L (38-126); Amylase 70 U/L (30-110); Anion Gap 8 mmol/L; Blood Urea Nitrogen 2 mg/dL (7-17); Calcium 8.4 mg/dL (8.4-10.2); Carbon Dioxide 24 mmol/L (22-30); Chloride 108 mmol/L (98-107); Glucose 156 mg/dL (74-99); Lipase 838 U/L (23-300); Magnesium 1.9 mg/dL (1.6-2.3); Potassium 3.5 mmol/L (3.5-5.1); Sodium 140 mmol/L (137-145); Total Bilirubin 0.8 mg/dL (0.2-1.3); Total Protein 5.7 g/dL (6.3-8.2)
--- NOTE | 2017-08-26 11:07 | P.PN ---
Subjective Progress Note Date: 08/26/17 Principal diagnosis: Acute pancreatitis Patient is still having abdominal bloating and right upper quadrant pain. She is currently tolerating full liquid diet. Objective - Vital Signs Vital signs: Vital Signs Temp 99.8 F H 08/26/17 01:20 Pulse 83 08/26/17 01:20 Resp 16 08/26/17 01:20 BP 138/83 08/26/17 01:20 Pulse Ox 97 08/26/17 01:20 Intake & Output 08/25/17 08/26/17 08/26/17 18:59 06:59 18:59 Intake Total 240 1800 Balance 240 1800 Weight 80.921 kg Intake: Intake, IV Titration 1800 Amount Sodium Chloride 0.9% 1, 1800 000 ml @ 150 mls/hr IV . Q6H40M [facility] Rx#:[id number] Oral 240 Other: Voiding Method Toilet Toilet # Voids 1 2 2 - Exam Constitutional: No acute distress, conversant, pleasant Eyes:Anicteric sclerae, moist conjunctiva, no lid-lag, PERRLA, ENMT: Oropharynx clear, no erythema, exudates Neck: Supple, FROM, no masses, or JVD, No carotid bruits, No thyromegaly Lungs: Clear to auscultation, Clear to percussion, Normal respiratory effort, no accessory muscle use Cardiovascular: Heart regular in rate and rhythm, No murmurs, gallops, or rubs, No peripheral edema Abdominal: Slightly distended, diffusely tender, no guarding, rebound or rigidity, Normoactive bowel sounds, No hepatomegaly, No splenomegaly, No palpable mass Skin: Normal temperature, tone, texture, turgor, no induration, No subcutaneous nodules, No rash, lesions, No ulcers Extremities: No digital cyanosis, No clubbing, Pedal pulses intact and symmetrical, Radial pulses intact and symmetrical, No calf tenderness Psychiatric: Alert and oriented to person, place and time, appropriate affect, intact judgement Neuro: Muscles Strength 5/5 in all 4 extremities, Sensation to light touch grossly present throughout, Cranial nerves II-XII grossly intact, no focal sensory deficits - Labs CBC & Chem 7: 08/26/17 06:51 08/26/17 08:18 Labs: Abnormal Lab Results - Last 24 Hours (Table) 07/19/18 07/19/18 Range/Units 06:51 08:18 RBC 3.20 L (3.80-5.40) m/uL Hgb 9.8 L (11.4-16.0) gm/dL Hct 31.1 L (34.0-46.0) % Plt Count 122 L (150-450) k/uL Chloride 108 H (98-107) mmol/L BUN 2 L (7-17) mg/dL Creatinine 0.38 L (0.52-1.04) mg/dL Glucose 156 H (74-99) mg/dL AST 88 H (14-36) U/L ALT 81 H (9-52) U/L Alkaline Phosphatase 135 H (38-126) U/L Total Protein 5.7 L (6.3-8.2) g/dL Albumin 3.1 L (3.5-5.0) g/dL Lipase 838 H (23-300) U/L Assessment and Plan Plan: Acute pancreatitis, likely alcoholic IV fluids Continue full liquid diet for now Amylase and lipase levels better Pain control Alcohol abuse CIWA protocol with Ativan IV Folic acid, multivitamins and thiamine once able to take by mouth. History of supraventricular tachycardia Stable Monitor heart rate Thrombocytopenia, Transaminitis and hyperbilirubinemia Likely secondary to alcohol abuse Counseled to quit Anxiety/depression/ADHD Psychiatry consult appreciated
[2017-08-26] MEDS ORDERED: cloNIDine HCL 0.1 MG TAB PO STA (19:24)
[2017-08-26] MEDS: MORPHINE SULFATE 2 MG/ML SYRINGE IV PRN (22:01)
[2017-08-27] MEDS ORDERED: MORPHINE SULFATE 2 MG/ML SYRINGE ONE (01:00)
[2017-08-27] MEDS ORDERED: SODIUM CHLORIDE 0.9% 1,000 ML BAG ONE (01:00)
[2017-08-27] MEDS ORDERED: METOCLOPRAMIDE 5 MG/ML 2 ML VIAL ONE (03:40)
[2017-08-27] MEDS ORDERED: HYDROcodone/APAP 5-325MG 1 EACH TAB ONE (03:40)
[2017-08-27] MEDS ORDERED: ceFAZolin IN SWFI 2 GM/20 ML SYRINGE IVP ONE (03:40)
[2017-08-27] MEDS ORDERED: HEPARIN SODIUM,PORCINE 5,000 UNIT/ML 1 ML VIAL ONE (03:40)
[2017-08-27] MEDS: SODIUM CHLORIDE 0.9% 1,000 ML IV SCH (05:17)
[2017-08-27] MEDS: MORPHINE SULFATE 2 MG/ML SYRINGE IV PRN ×4 (06:54→21:01)
[2017-08-27 07:20] LABS: Basophils % (A) 0 %; Eosinophils # (A) 0.3 k/uL (0-0.7); Eosinophils % (A) 4 %; HCT 30.7 % (34.0-46.0); HGB 9.5 gm/dL (11.4-16.0); Hypochromasia Moderate; Lymphocytes # (A) 1.1 k/uL (1.0-4.8); Lymphocytes % (A) 16 %; MCH 30.4 pg (25.0-35.0); MCHC 31.1 g/dL (31.0-37.0); MCV 97.8 fL (80.0-100.0); Monocytes % (A) 15 %; Neutrophils # (A) 4.1 k/uL (1.3-7.7); Neutrophils % (A) 61 %; Platelet Count 155 k/uL (150-450); RBC 3.14 m/uL (3.80-5.40); RDW 14.7 % (11.5-15.5); WBC 6.6 k/uL (3.8-10.6)
[2017-08-27 07:26] LABS: ALT 75 U/L (9-52); AST 99 U/L (14-36); Albumin 2.6 g/dL (3.5-5.0); Alkaline Phosphatase 107 U/L (38-126); Amylase 55 U/L (30-110); Anion Gap 5 mmol/L; Blood Urea Nitrogen <2 mg/dL (7-17); Carbon Dioxide 22 mmol/L (22-30); Chloride 110 mmol/L (98-107); Glucose 107 mg/dL (74-99); Lipase 692 U/L (23-300); Magnesium 1.8 mg/dL (1.6-2.3); Phosphorus 2.7 mg/dL (2.5-4.5); Potassium 3.6 mmol/L (3.5-5.1); Sodium 137 mmol/L (137-145); Total Bilirubin 0.5 mg/dL (0.2-1.3)
[2017-08-27] MEDS: NYSTATIN 100,000UNIT/GM CREAM 30 GM TUBE TOPICAL SCH ×3 (09:00→21:01)
--- NOTE | 2017-08-27 09:13 | P.PN ---
Subjective Progress Note Date: 08/27/17 Principal diagnosis: Acute pancreatitis Doing well, blood pressure was as high as 170/100 last night. Patient was given 1 dose of clonidine. No history of hypertension. Objective - Vital Signs Vital signs: Vital Signs Temp 99.6 F 08/27/17 00:30 Pulse 81 08/27/17 00:30 Resp 16 08/27/17 00:30 BP 145/90 08/27/17 05:31 Pulse Ox 98 08/27/17 00:30 Intake & Output 08/26/17 08/27/17 08/27/17 18:59 06:59 18:59 Intake Total 240 Balance 240 Intake: Oral 240 Other: # Voids 1 1 # Bowel Movements 1 - Exam Constitutional: No acute distress, conversant, pleasant Eyes:Anicteric sclerae, moist conjunctiva, no lid-lag, PERRLA, ENMT: Oropharynx clear, no erythema, exudates Neck: Supple, FROM, no masses, or JVD, No carotid bruits, No thyromegaly Lungs: Clear to auscultation, Clear to percussion, Normal respiratory effort, no accessory muscle use Cardiovascular: Heart regular in rate and rhythm, No murmurs, gallops, or rubs, No peripheral edema Abdominal: Slightly distended, diffusely tender, no guarding, rebound or rigidity, Normoactive bowel sounds, No hepatomegaly, No splenomegaly, No palpable mass Skin: Normal temperature, tone, texture, turgor, no induration, No subcutaneous nodules, No rash, lesions, No ulcers Extremities: No digital cyanosis, No clubbing, Pedal pulses intact and symmetrical, Radial pulses intact and symmetrical, No calf tenderness Psychiatric: Alert and oriented to person, place and time, appropriate affect, intact judgement Neuro: Muscles Strength 5/5 in all 4 extremities, Sensation to light touch grossly present throughout, Cranial nerves II-XII grossly intact, no focal sensory deficits - Labs CBC & Chem 7: 08/27/17 06:32 08/27/17 06:32 Labs: Abnormal Lab Results - Last 24 Hours (Table) 08/27/17 08/27/17 Range/Units 06:32 06:32 RBC 3.14 L (3.80-5.40) m/uL Hgb 9.5 L (11.4-16.0) gm/dL Hct 30.7 L (34.0-46.0) % Chloride 110 H (98-107) mmol/L BUN <2 L (7-17) mg/dL Creatinine 0.40 L (0.52-1.04) mg/dL Glucose 107 H (74-99) mg/dL Calcium 8.0 L (8.4-10.2) mg/dL AST 99 H (14-36) U/L ALT 75 H (9-52) U/L Total Protein 5.0 L (6.3-8.2) g/dL Albumin 2.6 L (3.5-5.0) g/dL Lipase 692 H (23-300) U/L Assessment and Plan Plan: Acute pancreatitis, likely alcoholic DC IV fluids Advised diet to regular, likely DC home if she tolerates diet Amylase and lipase levels better Pain control Alcohol abuse CIWA protocol with Ativan IV Folic acid, multivitamins and thiamine once able to take by mouth. History of unknown type of tachycardia Stable, patient was started on metoprolol for unknown type of tachycardia 2 months ago Has been off metoprolol throughout the admission, heart rate normal Doubts that she needs metoprolol over the long-term. Thrombocytopenia, Transaminitis and hyperbilirubinemia Likely secondary to alcohol abuse Counseled to quit Anxiety/depression/ADHD Psychiatry consult appreciated
[2017-08-27] MEDS: ONDANSETRON 4 MG/2 ML VIAL IVP PRN (15:57)
[2017-08-28] MEDS: MORPHINE SULFATE 2 MG/ML SYRINGE IV PRN ×2 (05:17→11:51)
[2017-08-28 07:00] LABS: Basophils % (A) 0 %; Eosinophils # (A) 0.2 k/uL (0-0.7); Eosinophils % (A) 3 %; HCT 32.5 % (34.0-46.0); HGB 10.2 gm/dL (11.4-16.0); Hypochromasia Slight; Lymphocytes # (A) 1.3 k/uL (1.0-4.8); Lymphocytes % (A) 16 %; MCH 30.1 pg (25.0-35.0); MCHC 31.3 g/dL (31.0-37.0); MCV 96.4 fL (80.0-100.0); Mean Platelet Volume 7.6; Monocytes % (A) 12 %; Neutrophils # (A) 5.4 k/uL (1.3-7.7); Neutrophils % (A) 67 %; Platelet Count 221 k/uL (150-450); RBC 3.37 m/uL (3.80-5.40); RDW 14.5 % (11.5-15.5); WBC 8.1 k/uL (3.8-10.6)
[2017-08-28 07:09] LABS: Amylase 44 U/L (30-110); Anion Gap 6 mmol/L; Blood Urea Nitrogen 2 mg/dL (7-17); Calcium 8.3 mg/dL (8.4-10.2); Carbon Dioxide 26 mmol/L (22-30); Chloride 108 mmol/L (98-107); Glucose 104 mg/dL (74-99); Lipase 550 U/L (23-300); Magnesium 1.8 mg/dL (1.6-2.3); Phosphorus 3.3 mg/dL (2.5-4.5); Potassium 3.6 mmol/L (3.5-5.1); Sodium 140 mmol/L (137-145)
[2017-08-28] MEDS ORDERED: HYDROcodone/APAP 5-325MG 1 EACH TAB PO PRN (11:57)
[2017-08-28] MEDS: NYSTATIN 100,000UNIT/GM CREAM 30 GM TUBE TOPICAL SCH ×3 (11:57→22:34)
--- NOTE | 2017-08-28 11:59 | P.PN ---
Subjective Progress Note Date: 08/28/17 Principal diagnosis: Acute pancreatitis Feeling better, no overnight issues. Objective - Vital Signs Vital signs: Vital Signs Temp 97.2 F L 08/28/17 07:35 Pulse 83 08/28/17 07:35 Resp 16 08/28/17 07:35 BP 144/83 08/28/17 07:35 Pulse Ox 96 08/28/17 07:35 Intake & Output 08/27/17 08/28/17 08/28/17 18:59 06:59 18:59 Intake Total 800 500 118 Balance 800 500 118 Weight 80.921 kg Intake: Intake, IV Titration 400 Amount Sodium Chloride 0.9% 1, 400 000 ml @ 150 mls/hr IV . Q6H40M [facility] Rx#:[id number] Oral 400 500 118 Other: # Voids 2 2 - Exam Constitutional: No acute distress, conversant, pleasant Eyes:Anicteric sclerae, moist conjunctiva, no lid-lag, PERRLA, ENMT: Oropharynx clear, no erythema, exudates Neck: Supple, FROM, no masses, or JVD, No carotid bruits, No thyromegaly Lungs: Clear to auscultation, Clear to percussion, Normal respiratory effort, no accessory muscle use Cardiovascular: Heart regular in rate and rhythm, No murmurs, gallops, or rubs, No peripheral edema Abdominal: Slightly distended, diffusely tender, no guarding, rebound or rigidity, Normoactive bowel sounds, No hepatomegaly, No splenomegaly, No palpable mass Skin: Normal temperature, tone, texture, turgor, no induration, No subcutaneous nodules, No rash, lesions, No ulcers Extremities: No digital cyanosis, No clubbing, Pedal pulses intact and symmetrical, Radial pulses intact and symmetrical, No calf tenderness Psychiatric: Alert and oriented to person, place and time, appropriate affect, intact judgement Neuro: Muscles Strength 5/5 in all 4 extremities, Sensation to light touch grossly present throughout, Cranial nerves II-XII grossly intact, no focal sensory deficits - Labs CBC & Chem 7: 08/28/17 06:30 08/28/17 06:30 Labs: Abnormal Lab Results - Last 24 Hours (Table) 08/28/17 08/28/17 Range/Units 06:30 06:30 RBC 3.37 L (3.80-5.40) m/uL Hgb 10.2 L (11.4-16.0) gm/dL Hct 32.5 L (34.0-46.0) % Chloride 108 H (98-107) mmol/L BUN 2 L (7-17) mg/dL Creatinine 0.42 L (0.52-1.04) mg/dL Glucose 104 H (74-99) mg/dL Calcium 8.3 L (8.4-10.2) mg/dL Lipase 550 H (23-300) U/L Assessment and Plan Plan: Acute pancreatitis, likely alcoholic Continue regular diet, tolerating well Amylase and lipase levels better Pain control--switch morphine to [place] Alcohol abuse CIOR protocol with Ativan IV Folic acid, multivitamins and thiamine once able to take by mouth. History of unknown type of tachycardia Stable, patient was started on metoprolol for unknown type of tachycardia 2 months ago Has been off metoprolol throughout the admission, heart rate normal Doubt that she needs metoprolol over the long-term. Thrombocytopenia, Transaminitis and hyperbilirubinemia Likely secondary to alcohol abuse Counseled to quit Anxiety/depression/ADHD Psychiatry consult appreciated
[2017-08-28] MEDS ORDERED: ONDANSETRON 4 MG TAB PO PRN (22:40)
[2017-08-28] MEDS: HYDROcodone/APAP 7.5-325MG 1 EACH TAB PO PRN (23:12)
[2017-08-29] MEDS: HYDROcodone/APAP 7.5-325MG 1 EACH TAB PO PRN ×2 (05:41→11:36)
[2017-08-29] MEDS: NYSTATIN 100,000UNIT/GM CREAM 30 GM TUBE TOPICAL SCH (08:20)
[2017-08-29 09:42] LABS: Amylase 43 U/L (30-110); Lipase 543 U/L (23-300)
[2017-08-29 10:53] VITALS: BP 144/89; PULSE 81; RESP 16; TEMP 98.4
--- NOTE | 2017-08-29 10:53 | P.DS ---
Providers Date of admission: 08/22/17 13:12 Expected date of discharge: 08/29/17 Attending physician: Cheryl Barajas DO Consults: 08/22/17 17:11 Consult Physician Urgent Consulting Provider: Mya Laguna Consult Reason/Comments: Depression, Anxiety, ETOH, ADHD Do you want consulting provider notified?: Yes Primary care physician: Physician Nonstaff Hospital Course: 46-year-old female presented to the emergency room today with a chief complaint of abdominal pain that started yesterday morning. She stated she's currently at [facility] for alcohol withdrawal. Stated her last drink was yesterday morning. Pain is constant, feels like a fullness sensation and bloating ache and is all over the abdomen. She has been having nausea, vomiting. States that she had a loose bowel movement was recently yesterday. With that she reported blood blood mixed with the stool. She also noticed some blood when she wiped. No fevers or chills. No chest pain or shortness of breath. Patient has been drinking over the last month on a daily basis about 1/5 of vodka every day. She has been drinking heavily over the last 9 months. Before that she never had a problem with alcohol. She has been going through divorce and recently lost her job. In the emergency department she was found to have very elevated amylase and lipase, subsequently was admitted to the hospital for further evaluation and management. She was started on IV fluids, placed nothing by mouth. Over the next few days she started to improve symptomatically. Her lipase and amylase went down with treatment. Pain was controlled with morphine IV. Eventually she was started on clears and diet was gradually advanced to normal regular food on the day of discharge. Patient will be discharged home in stable condition. She was counseled not to drink alcohol anymore. He was instructed to follow-up with her primary care physician in one week. Discharge diagnoses Acute alcoholic pancreatitis, resolved Patient Condition at Discharge: Good Plan - Discharge Summary Discharge Rx Participant: No New Discharge Prescriptions: New Nystatin 100,000Unit/gm Cream [Mycostatin Cream] 1 applic TOPICAL TID #100 applic Continue Fluticasone Nasal Telephone [Flonase Nasal Telephone] 1 spray EA NOSTRIL DAILY PRN PRN Reason: Allergy Symptoms Metoprolol Tartrate [Lopressor] 50 mg PO BID Discharge Medication List Fluticasone Nasal Telephone [Flonase Nasal Telephone] 1 spray EA NOSTRIL DAILY PRN 08/22 [History] Metoprolol Tartrate [Lopressor] 50 mg PO BID 08/22/17 [History] Nystatin 100,000Unit/gm Cream [Mycostatin Cream] 1 applic TOPICAL TID #100 applic 08/29/17 [Rx] Follow up Appointment(s)/Referral(s): Nonstaff,Physician [Primary Care Provider] - 1-2 days Casper Allison MD [STAFF PHYSICIAN] - 1 Week Activity/Diet/Wound Care/Special Instructions: [facility] to last picker on discharge, #[phone].
== END 2017-08-29 14:28 | DRG 439 ==
LOC: EC 11:15 → 3SUR 13:12 → 4MS4W 08-28 17:44
PROVIDERS: ADMIT Internal Medicine; ATTEND Internal Medicine
DX: K85.20 Alcohol induced acute pancreatitis without necrosis or infection (principal); F10.239 Alcohol dependence with withdrawal, unspecified; D69.59 Other secondary thrombocytopenia; F90.9 Attention-deficit hyperactivity disorder, unspecified type; R74.0 Nonspecific elevation of levels of transaminase and lactic acid dehydrogenase [LDH]; E11.9 Type 2 diabetes mellitus without complications; Z79.51 Long term (current) use of inhaled steroids; Z79.899 Other long term (current) drug therapy; Z86.79 Personal history of other diseases of the circulatory system; Z90.49 Acquired absence of other specified parts of digestive tract; Z98.51 Tubal ligation status; Z98.84 Bariatric surgery status; Z87.891 Personal history of nicotine dependence; Z86.59 Personal history of other mental and behavioral disorders; Z56.0 Unemployment, unspecified
CPT/HCPCS: 36415; 74018; 80048; 80053; 81001; 81025; 82150; 83690; 83735; 84100; 85025; 85027; 96361; 96374; 96375; 99285